=== PATIENT | female | born 1975 | race Caucasian/White ===

== ENCOUNTER 2017-08-01 09:55 | Observation (INO) | payer BC ==
[~2017-08-01] VITALS: Ht 160 cm; Wt 66.2 kg
[2017-08-01] MEDS ORDERED: CALC-1038 PO (10:09)
[2017-08-01] MEDS ORDERED: FERR-89 PO (10:09)
[2017-08-01] MEDS ORDERED: FOLI1 PO (10:09)
[2017-08-01 11:27] VITALS: BP 104/61
[2017-08-21] MEDS ORDERED: DSS100 PO (07:28)
== END 2017-08-01 12:30 | disposition home or self-care (01) ==
LOC: 4S 09:55
PROVIDERS: ADMIT Obstetrics & Gynecology; ATTEND Obstetrics & Gynecology
DX: O09.523 Supervision of elderly multigravida, third trimester (principal); Z3A.36 36 weeks gestation of pregnancy
CPT/HCPCS: 59025; 76805; G0378